=== PATIENT | female | born 1985 | race Two or more races ===

== ENCOUNTER 2021-10-02 17:04 | Emergency (ER) | payer MEDICAID ==
[~2021-10-02] VITALS: Ht 162.6 cm; Wt 65.3 kg
--- NOTE | 2021-10-02 17:22 | NUR ---
PT SEEN AND EVALUATED BY DR LUCERO.
[2021-10-02] MEDS ORDERED: HYDR-4209 PO (18:10)
--- NOTE | 2021-10-02 19:06 | NUR ---
PT WAS D/C'd TO HOME. D/C INSTRUCTIONS GIVEN TO THE PT BY DR LUCERO.
[2021-10-02 19:07] VITALS: BP 136/72
== END 2021-10-02 19:08 | disposition home or self-care (01) ==
LOC: ER 17:12
DX: S52.591A Other fractures of lower end of right radius, initial encounter for closed fracture (principal); S52.614A Nondisplaced fracture of right ulna styloid process, initial encounter for closed fracture; W01.0XXA Fall on same level from slipping, tripping and stumbling without subsequent striking against object, initial encounter; Y92.89 Other specified places as the place of occurrence of the external cause; R03.0 Elevated blood-pressure reading, without diagnosis of hypertension
CPT/HCPCS: 73090; 73110; A4663

== ENCOUNTER 2025-01-22 06:41 | Emergency (ER) | payer MEDICAID ==
[~2025-01-22] VITALS: Ht 157.5 cm; Wt 63.5 kg
[~2025-01-22 06:41] MED LIST: HYDR-4209 PO
[2025-01-22] MEDS ORDERED: AZIT500T PO (08:18)
[2025-01-22] MEDS ORDERED: ALBU2SYR3 PO (08:18)
[2025-01-22] MEDS ORDERED: PRED50TA PO (08:18)
[2025-01-22] MEDS ORDERED: AZITHROMYCIN 250 MG TABLET ONE (08:21)
[2025-01-22] MEDS ORDERED: predniSONE 50 MG TABLET ONE (08:22)
[2025-01-22] MEDS: AZITHROMYCIN 250 MG TABLET PO ONE (08:30)
[2025-01-22] MEDS: predniSONE 50 MG TABLET PO ONE (08:30)
[2025-01-22 08:32] VITALS: BP 118/90; TEMP 98.1; O2SAT 97
== END 2025-01-22 08:33 | disposition home or self-care (01) ==
LOC: ER 06:43
DX: J18.9 Pneumonia, unspecified organism (principal); Z79.52 Long term (current) use of systemic steroids; Z20.822 Contact with and (suspected) exposure to COVID-19
CPT/HCPCS: 99284; 71045; 87426; 87804 ×2; J7512; A4606; A4663; Q0144